=== PATIENT | male | born 1960 | race African-American/Black ===

== ENCOUNTER 2017-06-20 19:18 | Emergency (ER) | payer SELFPAY ==
[~2017-06-20] VITALS: Ht 190.5 cm; Wt 87.3 kg
[~2017-06-20 19:18] MED LIST: ASPI81TA11 PO
[2017-06-20 19:20] VITALS: BP 125/75; PULSE 75; RESP 16; TEMP 99.4; O2SAT 98
[2017-06-20] MEDS ORDERED: LIDOCAINE HCL 1% 50 ML VIAL INFIL ONE (19:45)
[2017-06-20] MEDS ORDERED: BACT800T5 PO (20:01)
[2017-06-20] MEDS ORDERED: MUPI2OIN TOPICAL (20:01)
[2017-06-20] MEDS ORDERED: CEPH-460 PO (20:01)
[2017-06-20] MEDS ORDERED: TRAM50TA PO (20:01)
--- NOTE | 2017-06-20 20:01 | PD ---
HPI Chief Complaint: Lump, Cyst, Hernia Time Seen by Provider: 19:44 Travel History International Travel<30 days: No Contact w/Intl Traveler<30days: No Traveled to known affect area: No History of Present Illness HPI Patient is a 56-year-old male presenting to the emergency department for evaluation of an abscess to his left axillary area. Patient states it's been there for approximately one week. He has been applying warm compresses and it started to spontaneously drain 2-3 days ago however after that it started to swell again and a second area erupted inferior to the first abscess. He denies any fever, chills, nausea, vomiting. He states his pain is a 10 out of 10 and describes it as sore and aching. There have been no alleviating factors, no exacerbating factors. [facility] Past Medical History Medical History: Denies Significant Hx Diminished Hearing: No Tetanus Vaccination: > 5 Years Past Surgical History Other Surgery: Yes (JAW) Social History Alcohol Use: Yes (3-4 beers every other day) Tobacco Use: Yes (8-12 cigs a month) Substance Use: Yes (THC and coccaine rarely) Allergies-Medications (Allergen,Severity, Reaction): Coded Allergies: No Known Allergies (Verified , 06/20/17) Reported Meds & Prescriptions Reported Meds & Active Scripts Active Review of Systems Except as stated in HPI: all other systems reviewed are Neg Skin: Positive Lesions Physical Exam Narrative GENERAL: Well-developed, well-nourished, alert male. Resting comfortably in no acute distress. SKIN: Warm and dry. 1 cm area of fluctuance to the left axilla, a second area of fluctuance approximately 0.5 cm inferior to the first. No surrounding erythema or edema noted. Moderately tender to palpation. HEAD: Normocephalic. EYES: No scleral icterus. No injection or drainage. NECK: Supple, trachea midline. No JVD or lymphadenopathy. CARDIOVASCULAR: Regular rate and rhythm without murmurs, gallops, or rubs. RESPIRATORY: Breath sounds equal bilaterally. No accessory muscle use. GASTROINTESTINAL: Abdomen soft, non-tender, nondistended. MUSCULOSKELETAL: No cyanosis, or edema. BACK: Nontender without obvious deformity. No CVA tenderness. Data Data Last Documented VS Vital Signs Date Time Temp Pulse Resp B/P (MAP) Pulse Ox O2 Delivery O2 Flow Rate FiO2 06/20/17 19:20 99.4 75 16 125/75 (92) 98 Orders Orders Wound Culture And Gram Stain (06/20/17 19:43) Lidocaine 1% Inj (50 Ml) (Xylocaine 1% I (06/20/17 19:45) MDM Medical Decision Making Medical Screen Exam Complete: Yes Emergency Medical Condition: Yes Interpretation(s) Vital Signs Date Time Temp Pulse Resp B/P (MAP) Pulse Ox O2 Delivery O2 Flow Rate FiO2 06/20/17 19:20 99.4 75 16 125/75 (92) 98 Differential Diagnosis Hidradenitis versus abscess versus sebaceous cyst versus other Narrative Course Patient is a 56-year-old male presenting for evaluation of abscesses to his left axillary area. Patient's vital signs are stable, he is afebrile and nontoxic appearing. Please see procedure report for I&D. Wound culture obtained, patient will be started on antibiotics empirically pending culture report. Patient tolerated procedure well. He was advised to keep very clean and dry, apply mupirocin ointment twice daily, change dressings as needed and daily. Patient verbalized understanding of these instructions. He was encouraged to return to emergency department for any new or worsening symptoms. He was advised to complete full course of antibiotics even if he begins to feel better. Patient is stable for discharge. Procedures Procedure Narrative After the risks and benefits were discussed the following procedure was performed: INCISION AND DRAINAGE OF ABSCESS: The area was prepped and was sterilely draped. A subcutaneous wheal of 1 % Xylocaine with a total number to mL was used to anesthetize the area. The area was properly anesthetized. A number 11 scalpel was used to make a 1-cm incision across the area of the superior abscess , a 0.5 cm incision was made across the inferior abscess. Cultures were obtained. The abscess was drained an irrigated with normal saline. Sterile dressing applied. Diagnosis Primary Impression: Abscess Additional Impression: Encounter for incision and drainage procedure Referrals: Primary Care Physician 2 days Patient Instructions: Abscess (ED), Abscess Incision and Drainage (DC), General Instructions Additional Instructions: Complete full course of antibiotics as prescribed Follow-up with your primary doctor Return to emergency department immediately for any new or worsening symptoms Keep area clean and dry, change dressings daily and as needed for swelling Apply topical antibiotic ointment twice daily Do not drive or operate machinery while taking pain medication Med/Other Pt SpecificInfo: Prescription(s) given Scripts Mupirocin Topical (Mupirocin Topical) 2 % Oint 1 APPLIC TOPICAL BID for Mgmt Bacterial Infection, #1 TUBE 0 Refills Prov: Rossana Zavala 06/20/17 Tramadol (Tramadol) 50 Mg Tab 50 MG PO Q6H Y for PAIN, #5 TAB 0 Refills Prov: Rossana Zavala 06/20/17 Cephalexin (Keflex) 500 Mg Cap 500 MG PO Q12H for Infection for 10 Days, CAP 0 Refills Prov: Rossana Zavala 06/20/17 Sulfamethoxazole-Trimethoprim (Bactrim DS) 800-160 Mg Tab 1 TAB PO BID for Infection, #20 TAB 0 Refills Prov: Rossana Zavala 06/20/17 Disposition: 01 DISCHARGE HOME Condition: Stable Rossana Zavala Jun 20, 2017 20:01
== END 2017-06-20 20:24 | disposition home or self-care (01) ==
LOC: NEPK 19:18
DX: L02.412 Cutaneous abscess of left axilla (principal); B95.62 Methicillin resistant Staphylococcus aureus infection as the cause of diseases classified elsewhere; F17.210 Nicotine dependence, cigarettes, uncomplicated
CPT/HCPCS: 10061; 86403; 87070; 87186; 87205

== ENCOUNTER 2018-01-02 00:37 | Observation (INO) | payer SELFPAY ==
[2018-01-02] VITALS (10 sets, daily range): BP systolic 119–147; BP diastolic 67–82; PULSE 64–98; RESP 16–20; TEMP 98.3–99.2; O2SAT 98–100
[~2018-01-02] VITALS: Ht 190.5 cm; Wt 91.0 kg
[~2018-01-02 00:37] MED LIST changes: -ASPI81TA11 PO; +BACT800T5 PO; +CEPH-460 PO; +MUPI2OIN TOPICAL; +TRAM50TA PO
--- NOTE | 2018-01-02 02:40 | PD ---
HPI Chief Complaint: Chest Pain Time Seen by Provider: 02:40 Travel History International Travel<30 days: No Contact w/Intl Traveler<30days: No Traveled to known affect area: No History of Present Illness HPI 57-year-old male came to the emergency room with his with history of left- sided chest pain that started at 12 AM. Patient says that the pain was sharp and localized to the left side of his chest. It lasted for 15 minutes and then went away. No radiation of the pain. No associated shortness of breath or syncopal episode. No history of nausea or vomiting. Patient has never had this kind of pain in the past and hence decided to come to the emergency room to be checked out. Patient is a smoker and has used cocaine in the past. His last time used was about a year ago. Patient had a stress test more than 10 years ago which was negative. No family history of coronary artery disease as far as he knows. Vital signs were relatively stable. PFSH Past Medical History Narrative Medical List of his past medical, surgical, social and family history is reviewed from the nursing note. Medical History: Denies Significant Hx Diminished Hearing: No Tetanus Vaccination: < 5 Years Influenza Vaccination: Yes Past Surgical History Other Surgery: Yes (JAW) Social History Alcohol Use: Yes (3-4 beers every other day) Tobacco Use: Yes (8-12 cigs a month) Substance Use: Yes (THC and coccaine rarely) Allergies-Medications (Allergen,Severity, Reaction): Coded Allergies: No Known Allergies (Verified Allergy, Unknown, 01/02/18) Comments No known drug allergy Reported Meds & Prescriptions Reported Meds & Active Scripts Active Reported Multiple Vitamin 1 Tab 1 Tab PO DAILY Narrative Medication List of his home medications reviewed from the nursing note. Review of Systems Except as stated in HPI: all other systems reviewed are Neg Cardiovascular: Positive: Chest Pain or Discomfort Physical Exam Narrative GENERAL: Awake, alert, no obvious distress SKIN: Focused skin assessment warm/dry. HEAD: Atraumatic. Normocephalic. EYES: Pupils equal and round. No scleral icterus. No injection or drainage. ENT: No nasal bleeding or discharge. Mucous membranes pink and moist. NECK: Trachea midline. No JVD. CARDIOVASCULAR: Regular rate and rhythm. No murmur appreciated. RESPIRATORY: No accessory muscle use. Clear to auscultation. Breath sounds equal bilaterally. GASTROINTESTINAL: Abdomen soft, non-tender, nondistended. Hepatic and splenic margins not palpable. MUSCULOSKELETAL: No obvious deformities. No clubbing. No cyanosis. No edema. NEUROLOGICAL: Awake and alert. No obvious cranial nerve deficits. Motor grossly within normal limits. Normal speech. PSYCHIATRIC: Appropriate mood and affect; insight and judgment normal. Data Data Last Documented VS Orders Orders Electrocardiogram (01/02/18 02:47) Basic Metabolic Panel (Bmp) (01/02/18 02:47) Complete Blood Count With Diff (01/02/18 02:47) Magnesium (Mg) (01/02/18 02:47) Prothrombin Time / Inr (Pt) (01/02/18 02:47) Troponin I (01/02/18 02:47) Chest, Single Ap (01/02/18 02:47) Ecg Monitoring (01/02/18 02:47) Bilateral Bp Monitoring (01/02/18 02:47) Iv Access Insert/Monitor (01/02/18 02:47) Oximetry (01/02/18 02:47) Oxygen Administration (01/02/18 02:47) Aspirin Chew (Aspirin Chew) (01/02/18 03:00) Sodium Chloride 0.9% Flush (Ns Flush) (01/02/18 03:00) Admit Order (Ed Use Only) (01/02/18 03:58) Place In Observation (01/02/18 03:58) Activity Bed Rest With Brp (01/02/18 03:58) Vital Signs (Adult) Q4H (01/02/18 03:58) Cardiac Rhythm .As Directed (01/02/18 03:58) Notify Dr: Other .PRN (01/02/18 03:58) Notify Parameters (01/02/18 03:58) Resp Oxygen Nasal Cannula (01/02/18 ) Ckmb (Isoenzyme) Profile (01/02/18 03:58) Troponin I (01/02/18 03:58) Electrocardiogram (01/02/18 03:58) ^ Obtain (01/02/18 03:58) Sodium Chloride 0.9% Flush (Ns Flush) (01/02/18 04:00) Sodium Chloride 0.9% Flush (Ns Flush) (01/02/18 09:00) Acetaminophen (Tylenol) (01/02/18 04:00) Blending Supervisor / Telemetry MARA.Q8H (01/02/18 03:58) CKMB (01/02/18 05:50) CKMB% (01/02/18 05:50) Labs Laboratory Tests Test 01/02/18 02:51 White Blood Count 4.5 TH/MM3 Red Blood Count 4.31 MIL/MM3 Hemoglobin 12.9 GM/DL Hematocrit 39.4 % Mean Corpuscular Volume 91.4 FL Mean Corpuscular Hemoglobin 30.0 PG Mean Corpuscular Hemoglobin Concent 32.8 % Red Cell Distribution Width 13.9 % Platelet Count 225 TH/MM3 Mean Platelet Volume 9.1 FL Neutrophils (%) (Auto) 40.9 % Lymphocytes (%) (Auto) 46.3 % Monocytes (%) (Auto) 10.6 % Eosinophils (%) (Auto) 1.8 % Basophils (%) (Auto) 0.4 % Neutrophils # (Auto) 1.8 TH/MM3 Lymphocytes # (Auto) 2.1 TH/MM3 Monocytes # (Auto) 0.5 TH/MM3 Eosinophils # (Auto) 0.1 TH/MM3 Basophils # (Auto) 0.0 TH/MM3 CBC Comment DIFF FINAL Differential Comment Prothrombin Time 9.7 SEC Prothromb Time International Ratio 1.0 RATIO Blood Urea Nitrogen 16 MG/DL Creatinine 1.06 MG/DL Random Glucose 95 MG/DL Calcium Level 9.1 MG/DL Magnesium Level 2.2 MG/DL Sodium Level 141 MEQ/L Potassium Level 4.6 MEQ/L Chloride Level 105 MEQ/L Carbon Dioxide Level 29.0 MEQ/L Anion Gap 7 MEQ/L Estimat Glomerular Filtration Rate 87 ML/MIN Troponin I LESS THAN 0.02 NG/ML MDM Medical Decision Making Medical Screen Exam Complete: Yes Emergency Medical Condition: Yes Medical Record Reviewed: Yes Interpretation(s) Twelve-lead EKG was reviewed by me. Normal sinus rhythm, normal axis, nonspecific ST-T wave changes. Heart rate of 71 bpm. Differential Diagnosis ACS, non-STEMI, atypical chest pain Narrative Course 4:11 AM blood test results are back and within acceptable limits. Patient will be admitted to the chest pain center to be ruled out ACS. Procedures EKG Prior to Arrival: No Diagnosis Primary Impression: Chest pain Qualified Codes: R07.9 - Chest pain, unspecified Admitting Information Admitting Physician Requests: Observation Rick Kaplan MD Jan 02, 2018 02:40
[2018-01-02] MEDS ORDERED: ASPIRIN 81 MG CHEW TAB PO ONE (03:00)
[2018-01-02] MEDS ORDERED: SODIUM CHLORIDE 0.9% FLUSH 10 ML FLUSH IVF PRN (03:00)
[2018-01-02 03:07] LABS: AUTOMATED NEUTROPHIL # 1.8 TH/MM3 (1.8-7.7); BASOPHIL % 0.4 % (0.0-2.0); EOSINOPHIL # 0.1 TH/MM3 (0-0.4); EOSINOPHIL % 1.8 % (0.0-4.0); HEMATOCRIT 39.4 % (39.0-51.0); HEMOGLOBIN 12.9 GM/DL (13.0-17.0); LYMPH % 46.3 % (9.0-44.0); LYMPHOCYTE # 2.1 TH/MM3 (1.0-4.8); MEAN CELL VOLUME 91.4 FL (80.0-100.0); MEAN CORPUSCULAR HGB CONC 32.8 % (32.0-36.0); MEAN PLATELET VOLUME 9.1 FL (7.0-11.0); MONO % 10.6 % (0.0-8.0); MONOCYTE # 0.5 TH/MM3 (0-0.9); NEUT % 40.9 % (16.0-70.0); PLATELET COUNT 225 TH/MM3 (150-450); RED BLOOD COUNT 4.31 MIL/MM3 (4.50-5.90); RED CELL DISTRIBUTION WIDTH 13.9 % (11.6-17.2); WHITE BLOOD COUNT 4.5 TH/MM3 (4.0-11.0)
[2018-01-02 03:16] LABS: PROTHROMBIN TIME - PATIENT 9.7 SEC (9.8-11.6)
[2018-01-02 03:34] LABS: TROPONIN I LESS THAN 0.02 NG/ML (0.02-0.05)
[2018-01-02 03:42] LABS: BLOOD UREA NITROGEN 16 MG/DL (7-18); CALCIUM 9.1 MG/DL (8.5-10.1); CHLORIDE 105 MEQ/L (98-107); CREATININE 1.06 MG/DL (0.60-1.30); GLOMERULAR FILTRATION RATE 87 ML/MIN (>89); GLUCOSE,RANDOM 95 MG/DL (74-106); MAGNESIUM 2.2 MG/DL (1.5-2.5); SODIUM (NA) 141 MEQ/L (136-145)
--- NOTE | 2018-01-02 03:44 | RADRPT ---
EXAM DATE/TIME: 01/02/2018 03:08 [facility] COMPARISON: CHEST SINGLE AP, September 12, 2015, 18:52. CHEST SINGLE AP, March 26, 2016, 9:01. INDICATIONS : Left side chest pains with pressure. MEDICAL HISTORY : None. SURGICAL HISTORY : None. ENCOUNTER: Initial ACUITY: 1 day PAIN SCORE: 8/10 LOCATION: Left chest FINDINGS: A single view of the chest demonstrates the lungs to be symmetrically aerated without evidence of mas s, infiltrate or effusion. No evidence of pneumothorax. The cardiomediastinal contours are unremark able. Osseous structures are intact. CONCLUSION: The lungs are clear. Dom Gardiner MD on January 02, 2018 at 3:41 Board Certified Radiologist. This report was verified electronically.
[2018-01-02] MEDS ORDERED: SODIUM CHLORIDE 0.9% FLUSH 10 ML FLUSH IV FLUSH PRN (04:00)
[2018-01-02] MEDS ORDERED: ACETAMINOPHEN 500 MG CPLT PO PRN (04:00)
[2018-01-02] MEDS ORDERED: MULTTAB67 PO (06:12)
[2018-01-02 06:40] LABS: TROPONIN I LESS THAN 0.02 NG/ML (0.02-0.05)
[2018-01-02] MEDS ORDERED: NITROGLYCERIN 0.4 MG SL 25 TABS/BTL SL PRN (07:45)
[2018-01-02] MEDS ORDERED: ONDANSETRON HCL 4 MG/2 ML VIAL IV PUSH PRN (07:45)
--- NOTE | 2018-01-02 08:28 | HHI.HP ---
HPI Primary Care Physician No Primary Care Physician Chief Complaint Chest pain History of Present Illness 57-year-old current smoker presents emergency room for further evaluation of chest pain. Onset 1230 AM. Discomfort woke him from sleep. Location epigastric area and left lower quadrat. Characterized as quick onset. No radiation. Duration 10-15 minutes. Associated symptoms of dyspnea. No nausea , vomiting, diaphoresis. Did not hurt to take a deep breath. No known precipitating or relieving factors. Endorses eating a heavy meal followed by a dessert one hour before going to sleep. Denied burning sensation or sour taste/ burning in throat. Denies similar pain in the past. Review of Systems General: No fatigue,weakness, fever, chills, or recent illness change in appetite. Has been in his general state of health. HEENT: No GOMES, no vision changes, no nasal congestion or drainage, no dysphasia CV: As stated above. No current CP or pressure. RESP: No SOB, cough, wheeze, or recent respiratory illness GI: No nausea, vomiting, bowel changes, history of GERD, constipation, pain, distention. No unintentional weight gain or weight loss. : No dysuria, urgency, frequency MS: No discomfort or change in ROM NEURO: No LOC, motor/sensory deficits PSYCH: No anxiety, depression, or situational stress SKIN: No rashes, no concerning lesions Past Family Social History Allergies: Coded Allergies: No Known Allergies (Verified Allergy, Unknown, 01/02/18) Past Medical History None Past Surgical History None Reported Medications Reported Meds & Active Scripts Active Reported Multiple Vitamin 1 Tab 1 Tab PO DAILY Active Ordered Medications Current Medications Medications (Trade) Dose Ordered Sig/Blaze Route Start Time Stop Time Status Last Admin (NS Flush) 2 ml UNSCH PRN IVF 01/02/18 03:00 (NS Flush) 2 ml UNSCH PRN IV FLUSH 01/02/18 04:00 (NS Flush) 2 ml BID IV FLUSH 01/02/18 09:00 (Tylenol) 500 mg Q4H PRN PO 01/02/18 04:00 (Zofran Inj) 4 mg Q6H PRN IV PUSH 01/02/18 07:45 (Nitrostat Sl) 0.4 mg Q5M PRN SL 01/02/18 07:45 (Aspirin) 325 mg DAILY PO 01/02/18 09:00 Family History Noncontributory for early onset cardiovascular disease Social History No known hypertension, diabetes, coronary artery disease, or hyperlipidemia. Current smoker 1/2 pack daily. Quit smoking for 15 years, starting back smoking 4 years ago. Endorses occasional alcohol use, drinking more alcohol this past week during bike week. . Works as a cook. Endorses job physical Past cardiac testing None Physical Exam Vital Signs Vital Signs Date Time Temp Pulse Resp B/P (MAP) Pulse Ox O2 Delivery O2 Flow Rate FiO2 01/02/18 06:17 99.2 98 18 126/71 (89) 98 01/02/18 06:00 66 16 124/72 (89) 99 Room Air 01/02/18 05:00 64 16 123/71 (88) 100 Room Air 01/02/18 04:36 99 21 01/02/18 04:00 66 16 135/73 (93) 100 Room Air 01/02/18 01:03 98.3 80 16 139/79 (99) 99 Physical Exam GENERAL: Alert WN, WD, NAD, pleasant, male HEAD: NC, AT CV: RRR, without murmur, rub, gallop, no JVD, S1-S2 no S3-S4. Chest wall nontender with palpation. RESP: Clear lungs throughout bilateral, no crackles, wheeze, rhonchi, symmetrical chest rise, nonlabored, able to speak in full sentences ABD: Soft, NT, ND, no masses, positive bowel tones EXT: Pulses +24, no dependent edema MS: Normal tone 4 extremities, nontender, no obvious deformities, full range of motion NEURO: CN II through CN XII grossly intact, motor strength 5/5, gait WNL PSYCH: A+O 3, pleasant affect, appropriate speech, mood, insight and judgment SKIN: Normal turgor, normal texture, no lesions, no rashes Laboratory Laboratory Tests Test 01/02/18 02:51 01/02/18 05:50 White Blood Count 4.5 Red Blood Count 4.31 Hemoglobin 12.9 Hematocrit 39.4 Mean Corpuscular Volume 91.4 Mean Corpuscular Hemoglobin 30.0 Mean Corpuscular Hemoglobin Concent 32.8 Red Cell Distribution Width 13.9 Platelet Count 225 Mean Platelet Volume 9.1 Neutrophils (%) (Auto) 40.9 Lymphocytes (%) (Auto) 46.3 Monocytes (%) (Auto) 10.6 Eosinophils (%) (Auto) 1.8 Basophils (%) (Auto) 0.4 Neutrophils # (Auto) 1.8 Lymphocytes # (Auto) 2.1 Monocytes # (Auto) 0.5 Eosinophils # (Auto) 0.1 Basophils # (Auto) 0.0 CBC Comment DIFF FINAL Differential Comment Prothrombin Time 9.7 Prothromb Time International Ratio 1.0 Blood Urea Nitrogen 16 Creatinine 1.06 Random Glucose 95 Calcium Level 9.1 Magnesium Level 2.2 Sodium Level 141 Potassium Level 4.6 Chloride Level 105 Carbon Dioxide Level 29.0 Anion Gap 7 Estimat Glomerular Filtration Rate 87 Troponin I LESS THAN 0.02 LESS THAN 0.02 Total Creatine Kinase 131 Creatine Kinase MB LESS THAN 0.5 Result Diagram: 01/02/181 01/02/18 025 Imaging Last 48 hours Impressions Chest X-Ray 01/02/18 0247 Signed Impressions: Service Date/Time: Tuesday, January 02, 2018 03:08 - CONCLUSION: The lungs are clear. Dom Gardiner MD Course EKG Normal sinus rhythm, no ST or T-segment changes Caprini VTE Risk Assessment Caprini VTE Risk Assessment: No/Low Risk (score <= 1) Caprini Risk Assessment Model Point Value = 1 Point Value = 2 Point Value = 3 Point Value = 5 Age 41-60 Minor surgery BMI > 25 kg/m2 Swollen legs Varicose veins or History of unexplained or recurrent spontaneous Oral contraceptives or hormone replacement Sepsis (< 1 month) Serious lung disease, including pneumonia (< 1 month) Abnormal pulmonary function Acute myocardial infarction Congestive heart failure (< 1 month) History of inflammatory bowel disease Medical patient at bed rest Age 61-74 Arthroscopic surgery Major open surgery (> 45 min) Laparoscopic surgery (> 45 min) Malignancy Confined to bed (> 72 hours) Immobilizing plaster cast Central venous access Age >= 75 History of VTE Family history of VTE Factor V Leiden Prothrombin [id number] Lupus anticoagulant Anticardiolipin antibodies Elevated serum homocysteine Heparin-induced thrombocytopenia Other congenital or acquired thrombophilia Stroke (< 1 month) Elective arthroplasty Hip, pelvis, or leg fracture Acute spinal cord injury (< 1 month) Prophylaxis Regimen Total Risk Factor Score Risk Level Prophylaxis Regimen 0-1 Low Early ambulation 2 Moderate Order ONE of the following: *Sequential Compression Device (SCD) *Heparin 5000 units SQ BID 3-4 Higher Order ONE of the following medications: *Heparin 5000 units SQ TID *Enoxaparin/Lovenox 40 mg SQ daily (WT < 150 kg, CrCl > 30 mL/min) *Enoxaparin/Lovenox 30 mg SQ daily (WT < 150 kg, CrCl > 10-29 mL/min) *Enoxaparin/Lovenox 30 mg SQ BID (WT < 150 kg, CrCl > 30 mL/min) AND/OR *Sequential Compression Device (SCD) 5 or more Highest Order ONE of the following medications: *Heparin 5000 units SQ TID (Preferred with Epidurals) *Enoxaparin/Lovenox 40 mg SQ daily (WT < 150 kg, CrCl > 30 mL/min) *Enoxaparin/Lovenox 30 mg SQ daily (WT < 150 kg, CrCl > 10-29 mL/min) *Enoxaparin/Lovenox 30 mg SQ BID (WT < 150 kg, CrCl > 30 mL/min) AND *Sequential Compression Device (SCD) Assessment and Plan Assessment and Plan #1 Atypical chest pain-admitted chest pain center. Ruled out with 3 sets of EKGs, cardiac enzymes, monitor on telemetry overnight. Seen and evaluated by Dr. Len Stein. Proceed with exercise stress test. If unremarkable, plans to discharge home and to establish with a primary care provider. #2 Tobacco use-strongly encouraged and stressed the importance of tobacco cessation. Instructed to quit smoking. #3 GERD-encouraged lifestyle modification for 2 weeks, if discomfort continued encouraged trying over the counter Zantac daily and following up with a PCP. Discussed local clinic's fee for services or free clinic's such as [facility] or [facility]. Numbers provided upon discharge. Encouraged yearly well check and labs. Joanne Barr Jan 02, 2018 08:28
[2018-01-02] MEDS ORDERED: ASPIRIN 325 MG TAB PO SCH (09:00)
[2018-01-02] MEDS ORDERED: SODIUM CHLORIDE 0.9% FLUSH 10 ML FLUSH IV FLUSH SCH (09:00)
--- NOTE | 2018-01-02 10:26 | HHI.DCPOC ---
Discharge Care Plan Diagnosis: (1) Atypical chest pain (2) Tobacco abuse Goals to Promote Your Health * To prevent worsening of your condition and complications * To maintain your health at the optimal level Directions to Meet Your Goals Take your medications as prescribed Follow your dietary instruction Follow activity as directed Keep your appointments as scheduled Take your immunizations and boosters as scheduled If your symptoms worsen call your PCP, if no PCP go to Urgent Care Center or Emergency Room Smoking is Dangerous to Your Health. Avoid second hand smoke Call the 24-hour hour crisis hotline for domestic abuse at Joanne Barr Jan 02, 2018 10:26
--- NOTE | 2018-01-02 17:11 | EKG ---
Date Performed: 01/02/2018 Time Performed: 05:43:52 PTAGE: 57 years EKG: Sinus rhythm POSSIBLE RIGHT VENTRICULAR CONDUCTION DELAY BORDERLINE ECG PREVIOUS TRACING : 03/26/2016 08.55 Since previous tracing, no significant change noted DOCTOR: Len Stein Interpretating Date/Time 01/02/2018 17:10:29
--- NOTE | 2018-01-02 17:12 | EKG ---
Date Performed: 01/02/2018 Time Performed: 00:54:53 PTAGE: 57 years EKG: Sinus rhythm INCOMPLETE RIGHT BUNDLE BRANCH BLOCK BORDERLINE ECG PREVIOUS TRACING : 03/26/2016 08.55 Since previous tracing, no significant change noted DOCTOR: Len Stein Interpretating Date/Time 01/02/2018 17:10:53
--- NOTE | 2018-01-02 17:17 | TR ---
Date Performed: 01/02/2018 Time Performed: 09:54:05 DOCTOR: Len Stein DRUG LIST: CLINICAL HISTORY: REASON FOR TEST: Chest pain REASON FOR ENDING: OBSERVATION: CONCLUSION: Akin protocol completed. Stopped sec to exceeding target herat rate and leg fatigue . Maximum XD=368 Target HR Achieved=87.0% Maximum RT=756/84 Total Exercise Time=4:01. No reprod chest discomfort. Rare PVC. St segments upsloping, nondiagnostic. Fair exercise tolerance. Normal bp respo nse. Recovery quick and unremarkable. COMMENTS: Patient exercised using the Akin protocol. No electrocardiographic changes were seen to suggest ischemia. Hemodynamic response to exercise was normal. No significant arrhythmia was prese nt.
== END 2018-01-02 12:32 | disposition home or self-care (01) ==
LOC: NEPC 00:37 → NEDA 04:01 → NEPFCDU 10:51
DX: R07.89 Other chest pain (principal); F17.210 Nicotine dependence, cigarettes, uncomplicated; K21.9 Gastro-esophageal reflux disease without esophagitis; R94.31 Abnormal electrocardiogram [ECG] [EKG]
CPT/HCPCS: 71045; 80048; 82550; 82552; 83735; 84484; 85025; 85610; 93005; 93017; 99285; G0378